=== PATIENT | male | born 1960 | race Caucasian/White ===

== ENCOUNTER 2018-08-13 12:53 | Outpatient (CLI) | payer BC, SELFPAY ==
[2018-08-13 13:22] LABS: Abs Immature Grans 0.01 k/cumm (0.0-0.09); Absolute Basophil Count 0.01 k/cumm (0.0-0.2); Absolute Eosinophil Count 0.09 k/cumm (0.0-0.7); Absolute Lymphocyte Count 1.78 k/cumm (1.2-3.4); Absolute Monocyte Count 0.68 k/cumm (0.11-0.7); Absolute Neutrophil Count 2.54 k/cumm (1.2-6.7); Basophils % 0.2; Eosinophils % 1.8; HCT 44.4 % (40.0-50.0); HGB 15.2 g/dL (13.5-17.5); Immature Grans % 0.2; Lymphocytes % 34.8; Mean Corp. HGB Concentration 34.2 g/dL (32.0-36.0); Mean Corpuscular Hemoglobin 31.6 pg (27.0-33.0); Mean Corpuscular Volume 92.3 fL (80-95); Mean Platelet Volume 9.1 fL (8.0-11.0); Monocytes % 13.3; Neutrophils % 49.7; Platelet Count 191 x1000/uL (130-400); RBC 4.81 m/cumm (4.50-6.00); RBC Distribution Width 12.7 % (11.8-14.1); White Blood Cell Count 5.11 k/cumm (4.4-10.8)
[2018-08-13 13:45] LABS: ALT 32 U/L (12-78); AST 15 U/L (15-37); Albumin 3.6 g/dL (3.4-5.0); Alkaline Phosphatase 60 U/L (46-116); Anion Gap 10.2 mmol/L (3-11); BUN 19 mg/dL (7-18); Bilirubin, Total 0.7 mg/dL (0.2-1.0); CO2 25.8 mmol/L (21.0-32.0); CREATININE 0.95 mg/dL (0.70-1.30); Calcium 9.1 mg/dL (8.5-10.1); Chloride 103 mmol/L (98-107); Glucose 103 mg/dL (70-100); Potassium 3.8 mmol/L (3.5-5.1); Sodium 139 mmol/L (136-145); Total Protein 7.2 g/dL (6.4-8.2)
[2018-08-16 09:22] LABS: CEA 0.7 ng/ml
== END 2018-08-13 13:13 ==
PROVIDERS: PCP Internal Medicine; Visit Provider Internal Medicine Hematology & Oncology
DX: C18.7 Malignant neoplasm of sigmoid colon (principal)
CPT/HCPCS: 36415; 80053; 82378; 85025

== ENCOUNTER 2018-12-03 00:38 | Outpatient (CLI) | payer BC, SELFPAY ==
[2018-12-03 09:10] LABS: Abs Immature Grans 0.01 k/cumm (0.0-0.09); Absolute Basophil Count 0.01 k/cumm (0.0-0.2); Absolute Eosinophil Count 0.13 k/cumm (0.0-0.7); Absolute Monocyte Count 0.56 k/cumm (0.11-0.7); Absolute Neutrophil Count 3.03 k/cumm (1.2-6.7); Basophils % 0.2; Eosinophils % 2.4; HCT 48.2 % (40.0-50.0); HGB 15.8 g/dL (13.5-17.5); Immature Grans % 0.2; Lymphocytes % 31.3; Mean Corp. HGB Concentration 32.8 g/dL (32.0-36.0); Mean Corpuscular Hemoglobin 30.8 pg (27.0-33.0); Mean Platelet Volume 9.5 fL (8.0-11.0); Monocytes % 10.3; Neutrophils % 55.6; Platelet Count 193 x1000/uL (130-400); RBC 5.13 m/cumm (4.50-6.00); RBC Distribution Width 12.2 % (11.8-14.1); White Blood Cell Count 5.44 k/cumm (4.4-10.8)
[2018-12-03 09:21] LABS: ALT 25 U/L (12-78); AST 14 U/L (15-37); Albumin 3.6 g/dL (3.4-5.0); Alkaline Phosphatase 47 U/L (46-116); BUN 19 mg/dL (7-18); Bilirubin, Total 0.4 mg/dL (0.2-1.0); CREATININE 1.09 mg/dL (0.70-1.30); Calcium 8.8 mg/dL (8.5-10.1); Chloride 104 mmol/L (98-107); Glucose 108 mg/dL (70-100); Potassium 5.2 mmol/L (3.5-5.1); Sodium 139 mmol/L (136-145); Total Protein 7.8 g/dL (6.4-8.2)
[2018-12-03] MEDS: Omnipaque 350 MG/ML 100 ML BTL IJ (10:09)
--- NOTE | 2018-12-03 10:15 | DI.CT_ITS ---
SYMPTOMS/DIAGNOSIS: H/O COLON CA, S/P RESECTION AND CHEMO, RESTAGING, Z85.038 CHEST, ABDOMEN AND PELVIS CT: CT examination of the chest, abdomen and pelvis was performed with intravenous infusion of 100 cc's of Omnipaque 350 and ingestion of dilute barium with biphasic hepatic imaging. No intrapulmonary nodule seen. No pleural effusion or pleural based mass. No mediastinal, hilar, axillary or supraclavicular adenopathy. No evidence of pulmonary embolic disease. No abnormality of the thoracic aorta. The tracheobronchial tree appears intact. There is hepatic steatosis. No focal hepatic or splenic lesion seen. The pancreas is normal. The gallbladder and bile ducts have normal CT appearance. The adrenals and kidneys are unremarkable. The abdominal aorta is of normal diameter and no major vascular abnormality is seen. No significant abdominal wall hernia is seen. No significant adenopathy identified in the abdomen or pelvis. Sigmoid anastomosis again noted, no change in appearance from 05/10/18 CT. No pelvic adenopathy. There are a couple of 5 mm in diameter lymph nodes seen adjacent to the rectosigmoid junction which are nonspecific. Mild thickening of the urinary bladder wall may represent post radiation findings, please correlate clinically. CONCLUSION: No evidence of metastatic disease in the chest, abdomen or pelvis in a patient who is status post resection of colon carcinoma.
[2018-12-06 11:15] LABS: CEA <0.5 ng/ml
== END 2018-12-03 00:58 ==
PROVIDERS: PCP Internal Medicine; Visit Provider Internal Medicine Hematology & Oncology
DX: Z85.038 Personal history of other malignant neoplasm of large intestine (principal); Z92.21 Personal history of antineoplastic chemotherapy; K76.0 Fatty (change of) liver, not elsewhere classified; Z12.89 Encounter for screening for malignant neoplasm of other sites; Z13.89 Encounter for screening for other disorder
CPT/HCPCS: 36415; 74177; 80053; 71260; 82378; 85025; J3490

== ENCOUNTER 2019-04-04 07:56 | Day surgery (SDC) | payer BC, SELFPAY ==
--- NOTE | 2019-04-04 06:53 | W.COLOREPORT ---
Date of service: 04/04/19 Time of Service: 08:55 Colonoscopy Report Date of procedure: 04/04/19 Pre-op diagnosis general: Hx of colon Cancer and Colon Polyps Post-op diagnosis procedure note: same Procedure: Colonoscopy with polypectomy with cold forceps Surgeon: Cris Montelongo Anesthesia proc note operative: other (General/ ASA 2/ Jace Allred CRNA) Estimated blood loss (mL): 5 Pathology: other (Rectal Polyp, Cecal Polyps, Transverse polyp x2, Descending colon polyp) Complications: None Disposition: same day Indications: Mr. Hamilton is a pleasant 58 year old male who is here today for a follow up colonoscopy. He has a history of colon cancer and has undergone a sigmoid coloectomy and chemotyherapy. He also had a tubular adenoma and hyperplastic polyps in the past. Risks, benefits and complications have been reviewed. Complications include but are not limited to bleeding, pain, perforation, missed small lesion/polyp, sore throat, aspiration and adverse reaction to the medications. Questions were entertained and answered to their satisfaction and they wished to proceed. No guarantees were given or implied. Prep: Miralax/Dulcolax Procedure Start Time: 08:55 Procedure End Time: 09:27 Retraction Time: 23 minutes Findings: Multiple polyps throughout the colon Procedure Description: After informed consent was obtained the patient was taken to the procedure room and placed in a left decubitous position. Monitors were applied and a time out was done. The patients name, date of , procedure, allergies to medications and metal in their body was reviewed. The patient was then sedated. Once sedated and comfortable a rectal exam was done. External exam was normal. Internal exam revealed a normal sphincter tone and no palpable masses. The prostate smooth. The scope was then introduced and retro-flexed. No internal hemorrhoids were identified and no masses. There was a small polyp which was removed with cold forceps. The scope was then advanced to the cecum without difficulty. The TI and appendiceal orifice were identified. The prep was adequate. The scope was then slowly retracted over 23 minutes back into the rectum. Polyps were removed with cold forceps in the Cecum x1, Transverse colon x2, and descending colon. The anastamosis was identified and was wide open. The scope was removed and the patient was woken up and taken back to Same day surgery in stable condition. The patient tolerated the procedure well and there were no immediate complications. Follow up: The patient should follow up in 1 year unless they develop changes in bowel habits or other new gastrointestinal complaints.
--- NOTE | 2019-04-04 06:55 | W.PM.DSUDISC ---
Discharge Plan Disposition Patient Disposition: HOME Condition: Good Discharge Details Reason For Visit: Colonoscopy Attending Provider: Cris Montelongo Primary Care Provider: Saira Jean Home Meds and New Rx's Prescriptions: Continued metoprolol succinate 50 MG tablet extended release 24 hr 100 mg PO HS RF: 0 aspirin [Aspirin Low-Strength] 81 MG tablet,chewable 81 mg PO DAILY RF: 0 Discontinued polyethylene glycol 3350 17 gram/dose powder 238 g PO ONCE Qty: 238 RF: 0 bisacodyl [Dulcolax (bisacodyl)] 5 mg tablet,delayed release (DR/EC) 5 mg PO ONCE Qty: 4 RF: 0 Discharge Instructions Instructions: Colonoscopy (DC), Colorectal Polyps (DC) Additional Instructions: Findings: 5 polyps Follow up: 1 year Please call if you develop: fevers >101.5 Nausea or Vomiting Abdominal pain that is not transient DAY SURGERY UNIT POST COLONOSCOPY INSTRUCTIONS 1. Because there will be medication in your system for the next 24 hours, you may feel a little sleepy. Your coordination will be affected. Therefore: a. Do not drive or operate dangerous equipment for 24 hours. b. Do not drink alcohol beverages for 24 hours (not even beer). c. Plan to go home and rest for the day. 2. Generally there are no restrictions on your activity after a day or so has gone by, but you may feel a bit fatigued for a few days. 3 After you arrive home you may have a light meal and return to a normal diet as you can tolerate it without feeling sick to your stomach. 4. After surgery, you may feel pain or discomfort. This should be only transient, but if it persists please contact your doctor. 5. If there are any questions regarding the findings of your procedure, please feel free to contact your doctor. 6. If you are unable to contact your doctor with a problem, contact the hospital at [phone]. 7. Continue all your regular medications unless directed otherwise. I understand the above instructions and have no questions. Signature of Patient or Responsible Adult Escort Date/Time Name of Responsible Adult Escort Signature of Nurse Date/Time Activity:: Activity as Tolerated Diet:: As Tolerated Discharge Orders Discharge Orders: Discharge Order (Routine); Ordered 04/04/19 Ordered By: Cris Montelongo DS: Diagnosis Discharge Diagnosis (1) S/P colonoscopy: Status: Acute (2) Colorectal polyps: Status: Acute
[2019-04-04] MEDS: Lactated Ringers 1,000 ML 80 ML IV (08:30)
--- NOTE | 2019-04-04 08:57 | BOWEL_PTH ---
PATIENT: Tony Hamilton V LOC: [facility] U#:[id number] AGE/SX: 58/M ROOM: RE04/04/[address]: Cris Montelongo MD : [id number] BED: DIS: 04/04/2019 SPEC #: [id number] RECD: 04/04/19 12:54 STATUS: BOUBACAR RE #: [id number] MAXIMUS: 04/04/19 08:[address]: Cris Montelongo DEPT: Surgical Specimen RECD BY: Yenny Wade ENTERED: 04/04/19 12:56 SP TYPE: Bowel OTHR DR: Saira Jean Tissues: 1 - BIOPSY BOWEL 2 - BIOPSY BOWEL 3 - BIOPSY BOWEL 4 - BIOPSY BOWEL Procedures: GROSS AND MICRO LEVEL 4 Comments: [id number]
[2019-04-04 09:55] VITALS: BP 138/80; PULSE 57; RESP 16; TEMP 36; O2SAT 95
== END 2019-04-04 10:15 | disposition home or self-care (01) ==
LOC: SUR 07:57
PROVIDERS: PCP Nurse Practitioner Family; Visit Provider Surgery
PROC: 0DJD8ZZ Inspection of Lower Intestinal Tract, Via Natural or Artificial Opening Endoscopic (ICD-10-PCS; CPT 45378; principal; 2019-04-04 09:30)
DX: Z12.11 Encounter for screening for malignant neoplasm of colon (principal); Z85.038 Personal history of other malignant neoplasm of large intestine; Z86.010 Personal history of colon polyps; K63.5 Polyp of colon; D12.0 Benign neoplasm of cecum; D12.3 Benign neoplasm of transverse colon; K51.40 Inflammatory polyps of colon without complications; Z90.49 Acquired absence of other specified parts of digestive tract; Z98.0 Intestinal bypass and anastomosis status; Z92.21 Personal history of antineoplastic chemotherapy
CPT/HCPCS: 45380; 88305

== ENCOUNTER 2019-08-08 00:40 | Outpatient (CLI) | payer BC, SELFPAY ==
[2019-08-08 08:44] LABS: Abs Immature Grans 0.01 k/cumm (0.0-0.09); Absolute Basophil Count 0.01 k/cumm (0.0-0.2); Absolute Eosinophil Count 0.11 k/cumm (0.0-0.7); Absolute Lymphocyte Count 1.44 k/cumm (1.2-3.4); Absolute Neutrophil Count 2.46 k/cumm (1.2-6.7); Basophils % 0.2; Eosinophils % 2.4; HCT 44.9 % (40.0-50.0); HGB 15.2 g/dL (13.5-17.5); Immature Grans % 0.2; Lymphocytes % 31.8; Mean Corp. HGB Concentration 33.9 g/dL (32.0-36.0); Mean Corpuscular Hemoglobin 31.8 pg (27.0-33.0); Mean Corpuscular Volume 93.9 fL (80-95); Mean Platelet Volume 9.1 fL (8.0-11.0); Neutrophils % 54.4; Platelet Count 223 x1000/uL (130-400); RBC 4.78 m/cumm (4.50-6.00); RBC Distribution Width 12.5 % (11.8-14.1); White Blood Cell Count 4.53 k/cumm (4.4-10.8)
[2019-08-08 08:58] LABS: ALT 29 U/L (16-63); AST 14 U/L (15-37); Albumin 3.6 g/dL (3.4-5.0); Alkaline Phosphatase 53 U/L (46-116); Anion Gap 9.1 mmol/L (3-11); BUN 15 mg/dL (7-18); Bilirubin, Total 0.6 mg/dL (0.2-1.0); CO2 28.9 mmol/L (21.0-32.0); CREATININE 0.99 mg/dL (0.70-1.30); Calcium 8.5 mg/dL (8.5-10.1); Chloride 105 mmol/L (98-107); Glucose 106 mg/dL (70-100); Potassium 4.2 mmol/L (3.5-5.1); Sodium 143 mmol/L (136-145); Total Protein 7.4 g/dL (6.4-8.2)
--- NOTE | 2019-08-08 09:42 | DI.CT_ITS ---
EXAM: CT CHEST/ABD/PEL W CLINICAL HISTORY: H/O COLON CA,C18.7,S/P RESECTION AND CHEMO,RESTAGING EXAM TECHNIQUE: CT examination of the chest, abdomen and pelvis was performed with bolus infusion of 100 cc Omnipaque 350 and ingestion of dilute barium. FINDINGS: The lungs are clear except for a stable 4 millimeter in diameter nodule associated with the major fis sure on the right, probably representing an intrapulmonary lymph node. No pleural effusion. No medi astinal or hilar adenopathy. Tracheobronchial tree appears intact. Note is made of hepatic steatosis. No focal hepatic lesion identified. Spleen is unremarkable. Gal lbladder and bile ducts are CT normal. Pancreas appears normal. Abdominal aorta is of normal diamet er and no major vascular abnormality is seen. Adrenals and kidneys appear normal. No retroperitonea l adenopathy in the upper abdomen. No significant abdominal wall hernia. No adenopathy in the pelvi s. No evidence of bowel obstruction. Normal appearance of the appendix. Adrenals and kidneys are unremarkable. No urinary tract calcification except for a tiny right upper pole nonobstructing calculus. Urinary bladder is unremarkable in appearance. Rectosigmoid anastomos is noted. There is slightly increased prominence of perirectal nodules, presumably representing smal l lymph nodes, the largest about 8 millimeters in diameter, these are a little more prominent than on previous examination of 12/03/2018. Findings are nonspecific and could represent inflammation versu s metastatic disease. An additional nodule is seen adjacent to the internal iliac vessels on the rig ht, unchanged from the prior examination. IMPRESSION: No evidence of metastatic disease of the chest. No evidence of metastatic disease of the abdomen or pelvis except for question slight interval increa se in prominence of perirectal lymph nodes, follow up CT suggested in 6 months.
[2019-08-08] MEDS: Breeza Beverage 473 ML BTL PO ×2 (09:43→09:44)
[2019-08-08] MEDS: Omnipaque 350 MG/ML 50 ML BTL PO (09:44)
[2019-08-08] MEDS: Omnipaque 350 MG/ML 100 ML BTL IV (09:44)
[2019-08-09 09:59] LABS: CEA 0.8 ng/ml
== END 2019-08-08 01:00 ==
PROVIDERS: PCP Nurse Practitioner Family; Visit Provider Internal Medicine Hematology & Oncology
DX: C18.7 Malignant neoplasm of sigmoid colon (principal); Z92.21 Personal history of antineoplastic chemotherapy; R59.0 Localized enlarged lymph nodes; R91.1 Solitary pulmonary nodule; K76.0 Fatty (change of) liver, not elsewhere classified; Z98.0 Intestinal bypass and anastomosis status
CPT/HCPCS: 74177; 80053; 71260; 82378; 85025; J3490; Q9967

== ENCOUNTER 2019-10-03 16:26 | Emergency (ER) | payer BC, SELFPAY ==
[2019-10-03 16:31] VITALS: BP 187/102; PULSE 72; RESP 16; TEMP 36.6; O2SAT 98
--- NOTE | 2019-10-03 16:48 | W.ED.GENAD ---
Discharge Plan Disposition Patient Disposition: HOME Condition: Good Discharge Details Chief Complaint: Orthopedic Clinical Impression: Plantar fasciitis Primary Care Provider: Saira Jean ED Provider: Shanique Wade Home Meds and New Rx's Prescriptions: Continued metoprolol succinate 50 MG tablet extended release 24 hr 100 mg PO HS RF: 0 aspirin [Aspirin Low-Strength] 81 MG tablet,chewable 81 mg PO DAILY RF: 0 Discharge Instructions Instructions: Plantar Fasciitis Exercises (GEN), Plantar Fasciitis (ED) Additional Instructions: X-rays are reassuring today. Please encourage rest, ice, elevation. Please begin using Aleve twice a day, once in the morning and once at night. Continue with this for the next 1 to 2 weeks. You may augment this with Tylenol to help with discomfort. Please continue with a supportive shoe as much as possible, and use postop shoe to help with pain when at home. Physical therapy referral is attached. Please also call podiatry, number listed below to schedule appointment. Attached is a list of exercises to begin. You may use tennis ball or golf ball, may find frozen water bottle helpful. If you develop fever/chills, increased pain or other new/worsening symptoms please seek care urgently once again. Stand Alone Forms: Physical Therapy Referral Referrals: Saira Jean NP [Primary Care Provider] - Mo Douglas DPM [[facility] STAFF PHYSICIAN] - Discharge Data Discharge Date/Time-TO BE ENTERED AT DEPARTURE: 10/03/19 18:00 Medical Decision Making Patient is a 59 year old male presenting today with c/c of right heel pain x 3 months. States that 3 months ago he was struck in the lateral aspect of the heel with steel at work. Reprots no pain initially. States the ecchymosis and discomfort began approximately 1 week after injury. However, this was short-lived discomfort associated with this injury on the last few weeks. After resolution of this however the patient then misstepped going down stairs. Believes that he may have struck his heel again at that time although he did not immediately note recurrence of his heel pain. He states that next month 1 week after this recurrent issue that he again noted discomfort. States that since that time, which is been present for weeks, that the pain has been steady and increasing. He now rates the pain at a 10 out of 10 and states that it can cause difficulty with ambulation. He finds that pain is improved when he is in his work boots which are fairly stiff and maximal when he is walking barefoot. Has not noted area of erythema, no break in skin, no warmth. States the pain is worse particularly with dorsiflexion and indicates the distal aspect of the calcaneus is area of maximal tenderness when ambulating. No pain with palpation over the Achilles tendon, normal Panda test. On exam, patient is resting comfortably. I did not note any antalgic gait. He has pain elicited with palpation over the distal calcaneus as well as with lateral squeeze testing. Plan for imaging although I find fracture to be less likely with the delayed pain after injury and mechanism of injury. FINDINGS: Bones/joints: Tiny superior calcaneal spur. Moderate sized plantar calcaneal spur. Normal bone density. No fracture or dislocation. Soft tissues: Normal. IMPRESSION: No acute bone or joint abnormality. Discussed these findings with the patient. The mechanism that causes the most increase in his discomfort is consistent with plantar fasciitis. He has not been taking anything for his discomfort. I did encourage the use of NSAIDs. As he is finding immobilization more comfortable on his head difficulty at home, offered a postoperative shoe to help with this. I encouraged stretching and rolling techniques. Will refer to physical therapy. I encouraged arch support. Given the length of time the patient's been having these continued symptoms, feel that referral to podiatry is appropriate. Patient will call tomorrow to schedule appointment. He was given return precautions. All of his questions and concerns were addressed and he is in agreement this plan. [facility] General Mode of arrival: ambulatory. Date/Time Provider Initiated Documentation: 10/03/19 16:48. Limitations to Documentation: no limitations. Information obtained by: patient and RN notes reviewed. History of Present Illness 59 year old M presents to the emergency department with the chief complaint of right heel pain, described as severe, with intensity rated at 10. Quality is described as sharp, and is localized to the right and lower extremity. Patient reports no radiation. Patient started experiencing this month(s) (3) and it has been intermittent. Immobilization improves symptom(s), Movement worsens symptoms . Patient notes no other symptoms.. Patient did receive the following treatments prior to arrival, none Related Data Home Medications Medication Instructions Recorded Confirmed metoprolol succinate 100 mg PO HS tab-cap 01/08/17 10/03/19 aspirin [Aspirin Low-Strength] 81 mg PO DAILY 02/05/17 10/03/19 Allergies Allergy/AdvReac Type Severity Reaction Status Date / Time No Known Allergies Allergy Verified 10/03/19 16:36 General Stated Complaint: Orthopedic PUMA: 4 Review of Systems Constitutional Constitutional: Reports as per HPI, Denies chills, Denies fever(s), Denies headache(s) and Denies weakness ENT Ears, Nose, Mouth, and Throat: Denies headache(s) Cardiovascular Cardiovascular: Reports as per HPI Respiratory Respiratory: Reports as per HPI and Denies cough Musculoskeletal Musculoskeletal: Reports as per HPI and Denies tingling Integumentary/Breasts Skin/Breast: Reports as per HPI, Denies rash and Denies wounds Neurologic Neurologic: Reports as per HPI, Denies headache(s), Denies tingling, Denies paresthesias and Denies weakness PFS Medical History Adenocarcinoma, colon 2017. partial colectomy ([place]) and chemotherapy x 6 mos. Colorectal polyps (Acute) Hypertension Melanocytic nevus of scalp Surgical History Colonoscopy - MAC (02/09/17) Colonoscopy - MAC (03/08/18) laryngoscopy with removal of FB on Tonsil Partial resection of colon (03/10/17) laparoscopic sigmoid colectomy with low anterior ansastamosis S/P colonoscopy (Acute ~04/04/19) 2018- Dx with Colon Cancer Social History Smoking/Tobacco Use Status: Current every day Tobacco Type: smokeless tobacco Smokeless tobacco user: chewing tobacco Quit status: considering quitting Alcohol Intake: former Year quit: 2019 Details: 2018 Drug use: Never Substance use type: does not use Details: last timed chewed was 04/02/19 Do you feel safe at home: Yes Do you feel safe in your relationship?: Yes Exam Const General: cooperative, healthy appearing, comfortable, no acute distress, well developed and well groomed Nutritional Appearance: average body habitus and well nourished Orientation: alert and awake Resp Effort & Inspection: normal respiratory effort, able to speak in complete sentences and no respiratory distress Cardio Rate: regular rate Rhythm: regular rhythm Skin General skin exam: no rashes or lesions noted Lesions: no lesions Rashes: no rashes Trauma: no lacerations or abrasions Neuro General: alert and awake Cognition: normal cognition Speech: speech normal Gait: normal gait Motor: muscle tone normal throughout Sensory Exam: no sensory deficits noted Extrem General: normal to inspection, full ROM, normal capillary refill, no joint enlargement, no clubbing, cyanosis or edema, no pedal edema, no calf tenderness and normal gait Left lower extremity: normal to inspection, full ROM, normal capillary refill, no joint enlargement, lower leg Details: normal to inspection and no edema; no tenderness, no localized swelling, no palpable cords, no ecchymosis, no crepitus and no deformity, ankle Details: normal to inspection, no edema and normal ROM; no tenderness, no swelling, no lacerations, no ecchymosis, no crepitus and achilles tendon exam normal and foot Details: normal capillary refill, normal to inspection, tenderness Location: of the calcaneus (pain with lateral squeeze and palpation over distal plantar surface, worse with dorsiflexion) Details: with squeeze; not of the mid foot and not of the base of the 5th metatarsal, no edema, vascular exam Details: dorsalis pedis pulse present, posterior tibial pulse present and normal capillary refill and motor-sensory exam Details: light-touch normal; no abrasions, no lacerations, no ecchymosis and no crepitus Psych Appearance: grossly normal and well kempt Mental Status: mental status grossly normal Speech and Movement: speech and movement normal Course Vital Signs Vital signs: Vital Signs Temperature 36.6 C 10/03/19 16:31 Pulse 72 10/03/19 16:31 Respiratory Rate 16 10/03/19 16:31 Blood Pressure 187/102 H 10/03/19 16:31 Pulse Oximetry 98 10/03/19 16:31 Temperature 36.6 C 10/03/19 16:31 Temperature Source Skin 10/03/19 16:31 Pulse 72 10/03/19 16:31 Respiratory Rate 16 10/03/19 16:31 Respiratory Effort Non-Labored 10/03/19 16:31 Blood Pressure 187/102 H 10/03/19 16:31 Blood Pressure Position Sitting 10/03/19 16:31 Pulse Oximetry 98 10/03/19 16:31 Oxygen Delivery Method Room Air 10/03/19 16:31 Oxygen Flow Rate 0 10/03/19 16:31 Pain Level 10 10/03/19 16:31
[2019-10-03] MEDS: Acetaminophen 500 MG TAB 1000 MG PO (17:27)
[2019-10-03] MEDS: Ibuprofen 600 MG TAB PO (17:27)
--- NOTE | 2019-10-03 17:27 | DI.RAD_ITS ---
EXAM: XR HEEL RT OS CALCIS INDICATION: severe pain, trauma 3 months ago. COMPARISON: No exams were available for comparison TECHNIQUE: 2D digital imaging was performed. FINDINGS: No fracture is identified. A heel spur is noted. No bony erosions are seen. IMPRESSION: Heel spur. No acute abnormality
--- NOTE | 2019-10-03 17:38 | DI.VRAD_ITS ---
PROCEDURE INFORMATION: Exam: XR Right Calcaneus Exam date and time: 10/03/2019 5:30 PM Age: 59 years old Clinical history: Heel; Right; Patient HX: Severe pain, trauma 3 months ago TECHNIQUE: Imaging protocol: XR of the Right calcaneus. Views: 2 or more views. COMPARISON: No relevant prior studies available. FINDINGS: Bones/joints: Tiny superior calcaneal spur. Moderate sized plantar calcaneal spur. Normal bone density. No fracture or dislocation. Soft tissues: Normal. IMPRESSION: No acute bone or joint abnormality. Dictated and Authenticated by: Armando Stapleton MD. Ordering:STEFANIE Bay MD
[2019-10-03 17:46] VITALS: BP 166/96; PULSE 96; RESP 16; TEMP 36.6; O2SAT 100
== END 2019-10-03 18:00 | disposition home or self-care (01) ==
PROVIDERS: Emergency Provider Physician Assistant; PCP Nurse Practitioner Family
DX: M72.2 Plantar fascial fibromatosis (principal); I10 Essential (primary) hypertension
CPT/HCPCS: 99283; 73650

== ENCOUNTER 2019-11-18 11:31 | Outpatient (CLI) | payer OTHER, SELFPAY ==
[2019-11-18 12:35] LABS: Absolute Basophil Count 0.02 k/cumm (0.0-0.2); Absolute Eosinophil Count 0.08 k/cumm (0.0-0.7); Absolute Lymphocyte Count 1.39 k/cumm (1.2-3.4); Absolute Monocyte Count 0.55 k/cumm (0.11-0.7); Absolute Neutrophil Count 2.46 k/cumm (1.2-6.7); Basophils % 0.4; Eosinophils % 1.8; Lymphocytes % 30.9; Mean Corp. HGB Concentration 33.3 g/dL (32.0-36.0); Mean Corpuscular Hemoglobin 31.1 pg (27.0-33.0); Mean Corpuscular Volume 93.2 fL (80-95); Mean Platelet Volume 9.2 fL (8.0-11.0); Monocytes % 12.2; Neutrophils % 54.7; Platelet Count 204 x1000/uL (130-400); RBC 5.15 m/cumm (4.50-6.00); RBC Distribution Width 12.7 % (11.8-14.1)
[2019-11-18 12:42] LABS: ALT 31 U/L (16-63); AST 17 U/L (15-37); Albumin 3.7 g/dL (3.4-5.0); Alkaline Phosphatase 47 U/L (46-116); BUN 14 mg/dL (7-18); Bilirubin, Total 0.9 mg/dL (0.2-1.0); CREATININE 0.87 mg/dL (0.70-1.30); Calcium 8.8 mg/dL (8.5-10.1); Chloride 104 mmol/L (98-107); Glucose 103 mg/dL (74-106); Potassium 4.9 mmol/L (3.5-5.1); Sodium 141 mmol/L (136-145); Total Protein 7.2 g/dL (6.4-8.2)
== END 2019-11-18 11:51 ==
PROVIDERS: PCP Nurse Practitioner Family; Visit Provider Internal Medicine Hematology & Oncology
DX: C18.7 Malignant neoplasm of sigmoid colon (principal)
CPT/HCPCS: 36415; 80053; 82378; 85025

== ENCOUNTER 2020-02-08 01:08 | Outpatient (CLI) | payer OTHER, SELFPAY ==
--- NOTE | 2020-02-08 | DI.CT_ITS ---
EXAM: CT ABDOMEN AND PELVIS W CLINICAL HISTORY: SIGMOID COLON CA, C18.7, S/P RESECTION AND CHEMO, RESTAGING EXAM TECHNIQUE: Imaging Protocol: Axial computed tomography images with coronal and sagittal reformatted images were created and reviewed CONTRAST MATERIAL: Intravenous: Omnipaque 350 Contrast volume:100 mL Oral: Yes COMPARISON: CT CHEST/ABD/PEL W from 08/08/2019 FINDINGS: ABDOMEN: Lung Bases: Normal where visualized. Liver: There is diffuse decreased attenuation of the liver consistent with fatty infiltration. No me asurable mass. Portal, Superior Mesenteric, and Splenic Veins: Unremarkable. Gallbladder and Biliary Tract: No radiodense calculus or dilation. Pancreas: Normal density, no abnormal calcifications or inflammatory process. Spleen: Normal. Adrenals: No masses seen. Kidneys: Normal size, contour and axis. There is right nephrolithiasis but no evidence of obstructive uropathy. No masses seen. Abdominal Aorta: Abdominal portion non-dilated. Atherosclerosis. Bowel: No obstruction or bowel wall thickening. Appendix is unremarkable. There is a rectosigmoid zoila stomosis, which appears unchanged. Peritoneal Cavity: No ascites, collection or mesenteric inflammatory response. Lymph Nodes: Within normal limits. Bones: There are degenerative changes in the spine. No aggressive osseous lesions are identified. Soft Tissues: Unremarkable. PELVIS: Bladder: Symmetric distention, no gross wall thickening. Reproductive Organs: Unremarkable as visualized. Lymph Nodes: Within normal limits. Bones: There are degenerative changes in the spine. No aggressive osseous lesions are identified. IMPRESSION: No evidence of abdominal or pelvic metastatic disease. RADIATION DOSE DELIVERED: DATA REPOSITORY: All CT scans at this facility are submitted to the National Radiology Data Registry (NRDR) Dose Index Registry (DIR) with the [employer] (ACR). RADIATION OPTIMIZATION: All CT scans at this facility use at least one of these dose optimization te chniques: automated exposure control; mA and/or kV adjustment per patient size (includes targeted exa ms where dose is matched to clinical indication); or iterative reconstruction.
[2020-02-08 09:45] LABS: Abs Immature Grans 0.01 k/cumm (0.0-0.09); Absolute Basophil Count 0.02 k/cumm (0.0-0.2); Absolute Eosinophil Count 0.09 k/cumm (0.0-0.7); Absolute Lymphocyte Count 1.33 k/cumm (1.2-3.4); Absolute Monocyte Count 0.51 k/cumm (0.11-0.7); Basophils % 0.4; Eosinophils % 1.9; HCT 46.1 % (40.0-50.0); HGB 15.2 g/dL (13.5-17.5); Immature Grans % 0.2 %; Lymphocytes % 28.5; Mean Corpuscular Hemoglobin 30.8 pg (27.0-33.0); Mean Corpuscular Volume 93.5 fL (80-95); Mean Platelet Volume 9.1 fL (8.0-11.0); Monocytes % 10.9; Neutrophils % 58.1; Platelet Count 199 x1000/uL (130-400); RBC 4.93 m/cumm (4.50-6.00); RBC Distribution Width 12.5 % (11.8-14.1); White Blood Cell Count 4.66 k/cumm (4.4-10.8)
[2020-02-08 10:00] LABS: ALT 30 U/L (16-63); AST 17 U/L (15-37); Albumin 3.6 g/dL (3.4-5.0); Alkaline Phosphatase 46 U/L (46-116); Anion Gap 6.2 mmol/L (3-11); BUN 17 mg/dL (7-18); Bilirubin, Total 0.8 mg/dL (0.2-1.0); CO2 31.8 mmol/L (21.0-32.0); CREATININE 1.03 mg/dL (0.70-1.30); Calcium 8.4 mg/dL (8.5-10.1); Chloride 104 mmol/L (98-107); Glucose 96 mg/dL (74-106); Potassium 3.8 mmol/L (3.5-5.1); Sodium 142 mmol/L (136-145); Total Protein 7.1 g/dL (6.4-8.2)
[2020-02-08] MEDS: Omnipaque 350 MG/ML 100 ML BTL IJ (12:57)
[2020-02-09 18:57] LABS: CEA 0.8 ng/mL (See Note)
== END 2020-02-08 01:28 ==
PROVIDERS: Internal Medicine Hematology & Oncology; PCP Nurse Practitioner Family; Visit Provider Nurse Practitioner Adult Health
DX: C18.7 Malignant neoplasm of sigmoid colon (principal); Z92.21 Personal history of antineoplastic chemotherapy; Z12.89 Encounter for screening for malignant neoplasm of other sites; N20.0 Calculus of kidney; K76.89 Other specified diseases of liver; Z98.0 Intestinal bypass and anastomosis status
CPT/HCPCS: 80053; 74177; 82378; 85025; J3490

== ENCOUNTER 2020-02-09 10:55 | Outpatient (CLI) | payer OTHER, SELFPAY ==
--- NOTE | 2020-02-09 | DI.CT_ITS ---
EXAM: CT CHEST W CLINICAL HISTORY: SIGMOID COLON CA,C18.7, RESTAGING EXAM TECHNIQUE: Imaging Protocol: Axial computed tomography images with coronal and sagittal reformatted images were created and reviewed CONTRAST MATERIAL: Intravenous: Omnipaque 350 Contrast volume:structured data in ml. COMPARISON: CT CHEST/ABD/PEL W from 08/08/2019 CT CHEST/ABD/PEL W from 08/08/2019 CT ABDOMEN PELVIS W from 02/08/2020 FINDINGS: Tracheobronchial tree: Patent where visualized. Mediastinum and Karoline: No dominant adenopathy or fluid collection. Pulmonary parenchyma: No consolidation or dominant measurable mass. There are mild underlying emphyse matous changes. There is a small pulmonary nodule near the minor fissure, un changed.. Pleura: No effusion or pneumothorax. Heart: The heart is not dilated. No coronary artery calcifications are seen. Aorta: Thoracic aorta non-dilated. Mild calcification. Upper abdomen: Severe fatty infiltration of the liver. Lymph nodes: Within normal limits. Bones: Degenerative changes are seen in the spine.. IMPRESSION: No evidence of metastatic disease in the chest or other acute abnormality. DATA REPOSITORY: All CT scans at this facility are submitted to the National Radiology Data Registry (NRDR) Dose Index Registry (DIR) with the [employer] (ACR). RADIATION OPTIMIZATION: All CT scans at this facility use at least one of these dose optimization te chniques: automated exposure control; mA and/or kV adjustment per patient size (includes targeted exa ms where dose is matched to clinical indication); or iterative reconstruction.
[2020-02-09] MEDS: Normal Saline - Diluent 50 ML VIAL IV (08:03)
[2020-02-09] MEDS: Omnipaque 350 MG/ML 100 ML BTL 70 ML IJ (08:04)
== END 2020-02-09 11:15 ==
PROVIDERS: PCP Nurse Practitioner Family; Visit Provider Nurse Practitioner Adult Health
DX: C18.7 Malignant neoplasm of sigmoid colon (principal); K76.0 Fatty (change of) liver, not elsewhere classified; R91.1 Solitary pulmonary nodule; Z12.89 Encounter for screening for malignant neoplasm of other sites
CPT/HCPCS: 71260; J3490

== ENCOUNTER 2020-04-02 06:08 | Day surgery (SDC) | payer OTHER, SELFPAY ==
[2020-04-02 06:15] VITALS: BP 140/92; PULSE 63; RESP 18; TEMP 36.5; O2SAT 96
[2020-04-02] MEDS: Lactated Ringers 1,000 ML 80 ML IV (06:35)
--- NOTE | 2020-04-02 06:48 | COLE_ITS ---
Date of service: 04/02/20 Time of Service: 07:25 Colonoscopy Report Date of procedure: 04/02/20 Pre-op diagnosis general: Hx of polyps, colon cancer and intermittent rectal bleeding Post-op diagnosis procedure note: same (polyps and inflammation at anastamosis) Procedure: Colonoscopy with polypectomy and bx Surgeon: Cris Montelongo Anesthesia proc note operative: other (General/ ASA 2/Mirta Guillen, JAZMINE) Estimated blood loss (mL): 5 Pathology: other (Appendiciel orifice bx, Transverse polyp, rectal polyp x2, bx at 20 cm, anastamosis bx at 10 cm) Complications: None Disposition: same day Indications: Tony is here today for a repeat screening colonoscopy. He was diagnosed with colon cancer in 2017 and underwent resection. His last colonoscopy was March of 2019 and he was noted to have pre-cancerous polyps. He now has developed intermittent rectal bleeding for the last 3 weeks and has had more constipation Plan for Colonoscopy Risks, benefits and complications have been reviewed. Complications include but are not limited to bleeding, pain, perforation, missed small lesion/polyp, sore throat, aspiration and adverse reaction to the medications. Questions were entertained and answered to their satisfaction and they wished to proceed. No guarantees were given or implied. Prep: Miralax/Dulcolax Procedure Start Time: 07:25 Procedure End Time: 08:25 Retraction Time: 35 minutes Findings: Severe infflammation and friable tissue at the anastamosis, inflammation at 20 cm, inflammed appendiceal orifice, Transverse polyp and rectal polyps x2 Procedure Description: After informed consent was obtained the patient was taken to the procedure room and placed in a left decubitous position. Monitors were applied and a time out was done. The patients name, date of , procedure, allergies to medications and metal in their body was reviewed. The patient was then sedated. Once sedated and comfortable a rectal exam was done. External exam was normal. Internal exam revealed bright red blood, a normal sphincter tone and no palpable masses. The prostate not felt. The scope was then introduced and retro-flexed. No internal hemorrhoids were identified. There was severe friability and bleeding noted at 10 cm, the site of the anastamosis. The scope was then advanced to the cecum with some difficulty due to a large amount of liquid stool, seeds and large pieces of fiber. The TI and appendiceal orifice were identified. The prep was marginal. 1 L of fluid was used to clear ourt the liquid stool. Small polyps could have been missed. There was inflammation around the appendiceal orifice and biopsies were done. The scope was then slowly retracted over 35 minutes back into the rectum. Polyps were removed with cold forceps in the transverse colon and 2 in the rectum. There was an area of inflammation noted at 20 cm and this was biopsied. The scope was retracted to 10 cm. The anastamosis was very friable and there was bleeding. No mass was identified. Biopsies were done circumferentialy. The s cope was removed and the patient was woken up and taken back to Same day surgery in stable condition. The patient tolerated the procedure well and there were no immediate complications. Follow up: Follow up will depend on biopsy results. LAst CEA done in January was normal.
--- NOTE | 2020-04-02 06:51 | W.PM.DSUDISC ---
Discharge Plan Disposition Patient Disposition: HOME Condition: Good Discharge Details Reason For Visit: Hx of colon CA, Hx of polyps, rectal bleeding Attending Provider: Cris Montelongo Primary Care Provider: Saira Jean Home Meds and New Rx's Prescriptions: Continued metoprolol succinate 50 MG tablet extended release 24 hr 100 mg PO DAILY RF: 0 Metamucil 3.4 gram/5.4 gram Powder 5.4 g PO DAILY RF: 0 Discharge Instructions Additional Instructions: Findings: 3 polyps inflammation of the anastamosis with bleeding Follow up: depends on pathology results. I will call you with results Please call if you develop: fevers >101.5 Nausea or Vomiting Abdominal pain that is not transient DAY SURGERY UNIT POST ENDOSCOPY INSTRUCTIONS 1. Because there will be medication in your system for the next 24 hours, you may feel a little sleepy. Your coordination will be affected. Therefore: a. Do not drive or operate dangerous equipment for 24 hours. b. Do not drink alcohol beverages for 24 hours (not even beer). c. Plan to go home and rest for the day. 2. Generally there are no restrictions on your activity after a day or so has gone by, but you may feel a bit fatigued for a few days. 3 After you arrive home you may have a light meal and return to a normal diet as you can tolerate it without feeling sick to your stomach. 4. After surgery, you may feel pain or discomfort. This should be only transient, but if it persists please contact your doctor. 5. If there are any questions regarding the findings of your procedure, please feel free to contact your doctor. 6. If you are unable to contact your doctor with a problem, contact the hospital at [phone]. 7. Continue all your regular medications unless directed otherwise. I understand the above instructions and have no questions. Signature of Patient or Responsible Adult Escort Date/Time Name of Responsible Adult Escort Signature of Nurse Date/Time Activity:: Activity as Tolerated Diet:: As Tolerated Discharge Orders Discharge Orders: Discharge Order (Routine); Ordered 04/02/20 Ordered By: Cris Montelongo DS: Diagnosis Discharge Diagnosis (1) Colorectal polyps: Status: Acute (2) History of colon cancer: Status: Chronic
--- NOTE | 2020-04-02 07:50 | BOWEL_PTH ---
PATIENT: Tony Hamilton V LOC: [facility] U#:[id number] AGE/SX: 59/M ROOM: RE04/02/[address]: Cris Montelongo MD : 1960 BED: DIS: 04/02/2020 SPEC #: [id number] RECD: 04/02/20 12:20 STATUS: BOUBACAR REJalyn #: [id number] MAXIMUS: 04/02/20 07:[address]: Cris Montelongo DEPT: Surgical Specimen RECD BY: Yenny Wade ENTERED: 04/02/20 12:23 SP TYPE: Bowel OTHR DR: Saira Jean Tissues: 1 - BIOPSY BOWEL 2 - BIOPSY BOWEL 3 - BIOPSY BOWEL 4 - BIOPSY BOWEL 5 - BIOPSY BOWEL Procedures: GROSS AND MICRO LEVEL 4 IMMUNOPEROXIDASE STAIN Comments: [id number]
[2020-04-02 08:58] VITALS: BP 144/87; PULSE 68; RESP 18; TEMP 36.3; O2SAT 97
== END 2020-04-02 09:14 | disposition home or self-care (01) ==
PROVIDERS: PCP Nurse Practitioner Family; Visit Provider Surgery
PROC: 0DJD8ZZ Inspection of Lower Intestinal Tract, Via Natural or Artificial Opening Endoscopic (ICD-10-PCS; CPT 45378; principal; 2020-04-02 07:30)
DX: Z12.11 Encounter for screening for malignant neoplasm of colon (principal); Z85.038 Personal history of other malignant neoplasm of large intestine; Z86.011 Personal history of benign neoplasm of the brain; K62.5 Hemorrhage of anus and rectum; K52.89 Other specified noninfective gastroenteritis and colitis; D12.3 Benign neoplasm of transverse colon; Z90.49 Acquired absence of other specified parts of digestive tract; Z98.0 Intestinal bypass and anastomosis status; K51.90 Ulcerative colitis, unspecified, without complications; K62.1 Rectal polyp
CPT/HCPCS: 45380; 88305; 88361; J2001; J2704

== ENCOUNTER 2020-05-29 01:42 | Outpatient (CLI) | payer OTHER, SELFPAY ==
[2020-05-29 17:20] LABS: Abs Immature Grans 0.01 10^3/uL (0.0-0.06); Absolute Basophil Count 0.02 10^3/uL (0.0-0.2); Absolute Eosinophil Count 0.22 10^3/uL (0.0-0.7); Absolute Lymphocyte Count 1.28 10^3/uL (1.2-3.4); Absolute Monocyte Count 0.71 10^3/uL (0.1-0.8); Absolute Neutrophil Count 2.77 10^3/uL (1.2-6.7); Basophils % 0.4; Eosinophils % 4.4; HCT 41.7 % (40.0-50.0); HGB 13.6 g/dL (13.5-17.5); Immature Grans % 0.2; Lymphocytes % 25.5; MCHC 32.6 % (32.0-36.0); MPV 9.1 fL (8.0-11.0); Monocytes % 14.2; Neutrophils % 55.3; Nucleated RBC 0 %; Platelet Count 278 10^3/uL (130-400); RBC 4.39 10^6/uL (4.36-5.78); RDW 12.8 % (11.8-14.1); WBC 5.01 10^3/uL (4.4-10.8)
[2020-05-29 17:56] LABS: ALT 62 U/L (16-63); AST 24 U/L (15-37); Albumin 2.9 g/dL (3.4-5.0); Alkaline Phosphatase 63 U/L (46-116); Anion Gap 9.1 mmol/L (3-11); BUN 18 mg/dL (7-18); Bilirubin, Total 0.3 mg/dL (0.2-1.0); C-Reactive Protein 3.41 mg/dL (0.0-0.3); CO2 27.9 mmol/L (21.0-32.0); CREATININE 0.87 mg/dL (0.70-1.30); Calcium 8.7 mg/dL (8.5-10.1); Chloride 106 mmol/L (98-107); Glucose 112 mg/dL (74-106); Potassium 3.8 mmol/L (3.5-5.1); Sodium 143 mmol/L (136-145); Total Protein 6.3 g/dL (6.4-8.2)
[2020-05-29 19:27] LABS: ESR 37 mm/hr (1-20)
== END 2020-05-29 02:02 ==
PROVIDERS: Internal Medicine Gastroenterology; PCP Nurse Practitioner Family; Visit Provider Internal Medicine Hematology & Oncology
DX: K51.20 Ulcerative (chronic) proctitis without complications (principal); C18.7 Malignant neoplasm of sigmoid colon
CPT/HCPCS: 36415; 80053; 80076; 85652; 82378; 85025; 86140

== ENCOUNTER 2021-02-04 04:14 | Outpatient (CLI) | payer OTHER, SELFPAY ==
[2021-02-04 15:55] LABS: Abs Immature Grans 0.01 10^3/uL (0.0-0.06); Absolute Basophil Count 0.02 10^3/uL (0.0-0.2); Absolute Eosinophil Count 0.06 10^3/uL (0.0-0.7); Absolute Lymphocyte Count 1.58 10^3/uL (1.2-3.4); Absolute Monocyte Count 0.57 10^3/uL (0.1-0.8); Absolute Neutrophil Count 3.06 10^3/uL (1.2-6.7); Basophils % 0.4; Eosinophils % 1.1; HCT 44.9 % (40.0-50.0); HGB 14.7 g/dL (13.5-17.5); Immature Grans % 0.2; Lymphocytes % 29.8; MCHC 32.7 % (32.0-36.0); MCV 94.7 fL (80-95); MPV 9.3 fL (8.0-11.0); Monocytes % 10.8; Neutrophils % 57.7; Nucleated RBC 0 %; Platelet Count 184 10^3/uL (130-400); RBC 4.74 10^6/uL (4.36-5.78); RDW 12.1 % (11.8-14.1); RDW-SD 42.3 fL
[2021-02-04 16:25] LABS: ESR 2 mm//hr (0-20)
[2021-02-04 17:03] LABS: ALT 36 U/L (16-63); AST 20 U/L (15-37); Albumin 3.6 g/dL (3.4-5.0); Alkaline Phosphatase 50 U/L (46-116); Anion Gap 6.2 mmol/L (3-11); BUN 19 mg/dL (7-18); Bilirubin, Direct 0.1 mg/dL (0.0-0.2); Bilirubin, Total 0.6 mg/dL (0.2-1.0); C-Reactive Protein 0.17 mg/dL (0.0-0.3); CO2 31.8 mmol/L (21.0-32.0); CREATININE 1.1 mg/dL (0.70-1.30); Calcium 8.9 mg/dL (8.5-10.1); Chloride 104 mmol/L (98-107); Glucose 87 mg/dL (74-106); Potassium 3.5 mmol/L (3.5-5.1); Sodium 142 mmol/L (136-145); Total Protein 6.9 g/dL (6.4-8.2)
== END 2021-02-04 04:15 | disposition home or self-care (01) ==
LOC: LBO 04:14
PROVIDERS: PCP Nurse Practitioner Family; Visit Provider Internal Medicine Gastroenterology
DX: K51.50 Left sided colitis without complications (principal)
CPT/HCPCS: 36415; 80048; 80076; 85652; 85025; 86140

== ENCOUNTER 2021-02-09 09:59 | Outpatient (REF) | payer OTHER, SELFPAY ==
[2021-02-12 15:21] LABS: Calprotectin 29.2 mcg/g
== END 2021-02-09 10:00 | disposition home or self-care (01) ==
LOC: NCHCN 09:59
PROVIDERS: PCP Nurse Practitioner Family; Visit Provider Internal Medicine Gastroenterology
DX: K51.50 Left sided colitis without complications (principal)
CPT/HCPCS: 83993

== ENCOUNTER 2021-06-13 10:34 | Outpatient (REF) | payer OTHER, SELFPAY ==
[2021-06-13 18:55] LABS: Calculated LDL 143 mg/dL (<100); Cholesterol 211 mg/dL (<200); HDL Cholesterol 42 mg/dL (40-60); Triglyceride 134 mg/dL (<150)
== END 2021-06-13 10:35 | disposition home or self-care (01) ==
LOC: NCHCN 10:34
PROVIDERS: PCP Nurse Practitioner Family; Visit Provider Nurse Practitioner Family
DX: E78.5 Hyperlipidemia, unspecified (principal)
CPT/HCPCS: 80061

== ENCOUNTER 2021-11-11 01:09 | Outpatient (CLI) | payer OTHER, SELFPAY ==
[2021-11-11 10:57] LABS: Source Nasal/Nares
[2021-11-11 14:39] LABS: COVID-19 PCR Negative (Negative)
== END 2021-11-11 01:10 | disposition home or self-care (01) ==
LOC: LBO 01:10
PROVIDERS: PCP Nurse Practitioner Family; Visit Provider Surgery
DX: Z20.822 Contact with and (suspected) exposure to COVID-19 (principal)
CPT/HCPCS: 87635

== ENCOUNTER 2021-11-13 10:19 | Day surgery (SDC) | payer OTHER, SELFPAY ==
--- NOTE | 2021-11-12 09:29 | NUR.NOTE ---
Addendum entered by Austyn Hauser 11/12/21 11:16: Arrival time changed, from 1115 to 1030...left NEW message on patients voicemail, informed office. Original Note: Pt. left x2 messages with NPO instructions and arrival time for 1115. Office aware of inability to contact patient.Nursing Note:
--- NOTE | 2021-11-13 06:44 | W.COLOREPORT ---
Colonoscopy Report Date of procedure: 11/13/21 Pre-op diagnosis general: Hx of colon cancer, colon cancer screening Post-op diagnosis procedure note: same (2 small polyps, ? cecal mass and radiation proctitis) Procedure: Colonoscopy with polypectomy and biopsy Surgeon: Cris Montelongo Anesthesia Type: General:No Airway (Diana Guillen CRNA) Estimated blood loss (mL): 5 Pathology: other (ascending polyp, transverse polyp, ? cecal mass biopsies) Complications: None Disposition: same day Indications: Tony is back to see me today to discuss another colonoscopy. He was noted to have a tubular adenoma and 2 hyperplastic polyps in 2019. He has constipation about once a month at which point he also has some rectal bleeding. Both the constipation and the bleeding usually resolve within 24 hours. He does not have any history of melena, abdominal pain or unintentional weight loss. His CEA was 1 the last time it was checked. He is otherwise doing well and has not had any other new health issues. The colonoscopy and prep were again reviewed. Risks, benefits and complications have been reviewed. Complications include but are not limited to bleeding, pain, perforation, missed small lesion/polyp, sore throat, aspiration and adverse reaction to the medications. Questions were entertained and answered to their satisfaction and they wished to proceed. No guarantees were given or implied. Proceed with colonoscopy under sedation with possible hemorrhoid banding. Prep: Miralax/Dulcolax Procedure Start Time: 11:03 Procedure End Time: 11:29 Retraction Time: 11 minutes Findings: 2 small polyps ? mass around the appendiceal orifice Procedure Description: After informed consent was obtained the patient was taken to the procedure room and placed in a left decubitous position. Monitors were applied and a time out was done. The patients name, date of , procedure, allergies to medications and metal in their body was reviewed. The patient was then sedated. Once sedated and comfortable a rectal exam was done. External exam was normal. Internal exam revealed a normal sphincter tone and no palpable masses. The prostate felt smooth. The scope was then introduced and retro-flexed. NO internal hemorrhoids, polyps or masses were identified on retro-flexion. There was radiation proctitis noted. The scope was then advanced to the cecum without difficulty. The ileocecal vlave and appendiceal orifice were identified. The prep was good. The scope was then slowly retracted over 11 minutes back into the rectum. There was a ? mass vs inflammation around the appendiceal orifice which was biopsied. Polyps were removed with cold forceps in the ascending colon and transverse colon. There was no diverticulosis noted. The anastamosis site was identified. There was no stricture or recurrence identified. The scope was removed and the patient was woken up and taken back to Same day surgery in stable condition. The patient tolerated the procedure well and there were no immediate complications. Follow up: Follow up will depend on pathology results. CEA was ordered in SDS.
--- NOTE | 2021-11-13 06:45 | HPE_ITS ---
Assessment and Plan Assessment and plan (1) Encounter for colonoscopy due to history of adenomatous colonic polyps: Status: Acute Assessment and plan: Tony is back to see me today to discuss another colonoscopy. He was noted to have a tubular adenoma and 2 hyperplastic polyps in 2019. He has constipation about once a month at which point he also has some rectal bleeding. Both the constipation and the bleeding usually resolve within 24 hours. He does not have any history of melena, abdominal pain or unintentional weight loss. His CEA was 1 the last time it was checked. He is otherwise doing well and has not had any other new health issues. The colonoscopy and prep were again reviewed. Risks, benefits and complications have been reviewed. Complications include but are not limited to bleeding, pain, perforation, missed small lesion/polyp, sore throat, aspiration and adverse reaction to the medications. Questions were entertained and answered to their satisfaction and they wished to proceed. No guarantees were given or implied. Proceed with colonoscopy under sedation with possible hemorrhoid banding. (2) History of colon cancer: Status: Chronic History of Present Illness Narrative: Tony see me today to discuss another colonoscopy. He was diagnosed with colon cancer in the sigmoid colon in 2016. He underwent a sigmoid colectomy with low anterior resection. I did a colonoscopy on him in 2018 and he was noted to have 2 sessile serrated adenomas and a tubulovillous adenoma. I had him come back in September 2020 at which time he had 2 hyperplastic polyps and 1 tubular adenoma. In February 2020 he was also seen at [facility] for rectal bleeding. 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 He was placed on mesalamine which helped. He took the mesalamine for about 2 months and then stopped it as it was too expensive. He was having some constipation issues back when I saw him in 2019. He is on Metamucil now. He does tell me that about once a month he does still get constipated and then he will have some blood which he believes are hemorrhoids. The constipation usually resolves within 24 hours as does the bleeding. He has not had any melena or unintentional weight loss. He has no abdominal pain. Review of Systems Constitutional Constitutional: Denies fever(s), Denies headache(s) and Denies weight loss Eyes Eyes: Denies change in vision ENT Ears, Nose, Mouth, and Throat: Denies dysphagia and Denies headache(s) Cardiovascular Cardiovascular: Denies chest pain, Denies chest pain at rest, Denies irregular heart rhythm, Denies dyspnea and Denies dyspnea on exertion Respiratory Respiratory: Denies cough, Denies dyspnea and Denies dyspnea on exertion Gastrointestinal Gastrointestinal: Reports as per HPI and Denies dysphagia Genitourinary Genitourinary: Denies dysuria, Denies urinary incontinence and Denies urinary urgency Neurologic Neurologic: Denies headache(s) Endocrine Endocrine: Reports system reviewed and no additional complaints, except as documented Hematologic/Lymphatic Hematologic/Lymphatic: Denies easy bruising and Denies lymphadenopathy PFSH All Active Problems Encounter for colonoscopy due to history of adenomatous colonic polyps (Acute) Tubular adenoma (Acute) 04/02/20 Dr. Ray Montelongo Constipation (Acute) Rectal bleeding (Acute) Colorectal polyps (Acute) History of colon cancer (Chronic) Medical History Adenocarcinoma, colon 2017. partial colectomy ([place]) and chemotherapy x 6 mos. Colon polyp, hyperplastic 04/02/20 Dr. Ray Montelongo, hyperplastic x2 Hypertension Melanocytic nevus of scalp Surgical History Colonoscopy - MAC (02/09/17) Colonoscopy - MAC (03/08/18) laryngoscopy with removal of FB on Tonsil Partial resection of colon (03/10/17) laparoscopic sigmoid colectomy with low anterior ansastamosis S/P colonoscopy (~04/04/19) 2018- Dx with Colon Cancer Family History Other Essential hypertension Heart disease Lung cancer Social History Smoking/Tobacco Use Status: Former Tobacco Use Quit Date: 10/26/77 Smokeless tobacco user: chewing tobacco Quit status: considering quitting Smoking risk assessment performed?: Yes Alcohol Intake: former Year quit: 2019 Details: 2018 Drug use: Never Substance use type: does not use Current gender identity: male Do you feel safe at home: Yes Do you feel safe in your relationship?: Yes Meds Allergies and Home Medications Allergies Allergy/AdvReac Type Severity Reaction Status Date / Time No Known Allergies Allergy Verified 11/13/21 10:29 Home Medications Medication Instructions Recorded Confirmed Type metoprolol succinate 100 mg PO DAILY tab-cap 01/08/17 11/13/21 History Metamucil 5.4 g PO DAILY 03/29/20 11/13/21 History bisacodyl 5 mg tablet,delayed 5 mg PO ONCE #4 tab 10/01/21 11/13/21 Rx release hydrochlorothiazide 25 mg tablet 25 mg PO DAILY 10/01/21 11/13/21 History polyethylene glycol 3350 17 17 g PO ONCE #238 g 10/01/21 11/13/21 Rx gram/dose oral powder Exam Const General: healthy appearing and comfortable Resp Effort & Inspection: normal respiratory effort Auscultation: clear to auscultation bilaterally Cardio Rate: regular rate Rhythm: regular rhythm Heart Sounds: no click, no gallops and no murmurs
--- NOTE | 2021-11-13 06:47 | W.PM.DSUDISC ---
Discharge Plan Disposition Patient Disposition: HOME Condition: Good Discharge Details Reason For Visit: Colonoscopy Attending Provider: Cris Montelongo Primary Care Provider: Sussy Pabon Home Meds and New Rx's Prescriptions: Continued hydrochlorothiazide 25 mg tablet 25 mg PO DAILY RF: 0 metoprolol succinate 50 MG tablet extended release 24 hr 100 mg PO DAILY RF: 0 Metamucil 3.4 gram/5.4 gram Powder 5.4 g PO DAILY RF: 0 Discontinued bisacodyl [Dulcolax (bisacodyl)] 5 mg tablet,delayed release (DR/EC) 5 mg PO ONCE Qty: 4 RF: 0 polyethylene glycol 3350 17 gram/dose powder 17 g PO ONCE Qty: 238 RF: 0 Discharge Instructions Instructions: Colorectal Polyps (DC) Additional Instructions: Findings: 2 small polyps Cecal mass ? Follow up: I will call you with results of the biopsies Please call if you develop: fevers >101.5 Nausea or Vomiting Abdominal pain that is not transient Rectal bleeding that is more then a tbsp A hard abdomen and inability to pass gas DAY SURGERY UNIT POST ENDOSCOPY INSTRUCTIONS Instructions for everyone who is given Anesthesia: For your safety, please do the following for the next 24 Hours: a. Do not drive or operate dangerous equipment b. Do not drink alcohol beverages or use any recreational drugs for the first 24 hours or while taking pain medications. The medications in your body may have a reaction that can be dangerous. c. Do not make any important decisions or sign any important papers 1. Generally there are no restrictions on your activity after a day or so has gone by, but you may feel a bit fatigued for a few days. 2. After you arrive home you may have a light meal and return to a normal diet as you can tolerate it without feeling sick to your stomach. 3. After surgery, you may feel pain or discomfort. This should be only transient, but if it persists please contact your doctor. 4. If there are any questions regarding the findings of your procedure, please feel free to contact your doctor. 6. If you are unable to contact your doctor with a problem, contact the hospital at [phone]. 7. Continue all your regular medications unless directed otherwise. I understand the above instructions and have no questions. Signature of Patient or Responsible Adult Escort Date/Time Name of Responsible Adult Escort Signature of Nurse Date/Time Activity:: Activity as Tolerated Diet:: As Tolerated Discharge Orders Discharge Orders: Discharge Order (Routine); Ordered 11/13/21 Ordered By: Cris Montelongo DS: Diagnosis Discharge Diagnosis (1) Encounter for colonoscopy due to history of adenomatous colonic polyps: Status: Acute (2) History of colon cancer: Status: Chronic
--- NOTE | 2021-11-13 10:02 | W.ANESPRE ---
General Info Date of Service Date Performed: 11/13/21 Height: 6 ft Weight: 119.918 kg Body Mass Index (BMI): 35.8 Surgical Procedure: Operation Date: 11/13/21 11:50 Proposed Procedures Side Surgeon p Colonoscopy w/ possible hemorrhoid banding Cris Montelongo MD Meds Allergies and Home Medications Allergies Allergy/AdvReac Type Severity Reaction Status Date / Time No Known Allergies Allergy Verified 11/13/21 10:29 Home Medication Medication Instructions Recorded metoprolol succinate 100 mg PO DAILY tab-cap 01/08/17 Metamucil 5.4 g PO DAILY 03/29/20 bisacodyl 5 mg tablet,delayed 5 mg PO ONCE #4 tab 10/01/21 release hydrochlorothiazide 25 mg tablet 25 mg PO DAILY 10/01/21 polyethylene glycol 3350 17 17 g PO ONCE #238 g 10/01/21 gram/dose oral powder Current Visit Medications: Current Medications Generic Name Dose Route Start Last Admin Trade Name Freq PRN Reason Stop Dose Admin Hyoscyamine Sulfate 0.125 mg 11/13/21 06:47 Hyoscyamine 0.125 Mg Sl/Oral/Chew SL DIRECTED PRN Ringer's Solution 1,000 mls @ 80 mls/hr 11/13/21 06:00 IV 11/25/21 23:59 INFUSION RUPESH IV Miscellaneous Supplies 1 each 11/13/21 06:00 Iv Access IV 11/25/21 23:59 DIRECTED RUPESH Ondansetron HCl 4 mg 11/13/21 06:47 Ondansetron 4 Mg/2 Ml Vial IVP Q4H PRN PRN Nausea / Vomiting Sodium Chloride 0 ml 11/13/21 06:00 Normal Saline Flush 10 Ml Syr IV 11/25/21 23:59 PRN PRN Sodium Chloride 0 ml 11/13/21 06:00 Normal Saline 10 Ml Vial IJ 11/25/21 23:59 DIRECTED PRN Sterile Water 0 ml 11/13/21 06:00 Water,Injection,Sterile 10 Ml Vial IJ 11/25/21 23:59 DIRECTED PRN PFSH Active Problems Active Problems: Problem Status Onset Code Encounter for colonoscopy due to history of adenomatous colonic polyps Z12.11, Z86.010 Tubular adenoma D36.9 Constipation K59.00 Rectal bleeding K62.5 Colorectal polyps K63.5 History of colon cancer Z85.038 Medical History Medical History Adenocarcinoma, colon 2017. partial colectomy ([place]) and chemotherapy x 6 mos. Colon polyp, hyperplastic 04/02/20 Dr. Ray Montelongo, hyperplastic x2 Hypertension Melanocytic nevus of scalp Surgical History Surgical History Colonoscopy - MAC (02/09/17) Colonoscopy - MAC (03/08/18) laryngoscopy with removal of FB on Tonsil Partial resection of colon (03/10/17) laparoscopic sigmoid colectomy with low anterior ansastamosis S/P colonoscopy (~04/04/19) 2018- Dx with Colon Cancer Tobacco Smoking/Tobacco Use Status: Former Tobacco Use Smokeless tobacco user: chewing tobacco Quit Status: considering quitting Alcohol Alcohol Intake: former Year quit: 2019 Details: 2018 Substance Use Substance use: Never Substance use type: does not use Vital Signs and Lab Results Vital Signs Most Recent Vital Signs in EMR: Temp Pulse Resp BP Pulse Ox 36.3 C L 64 16 170/98 H 99 11/13/21 10:31 11/13/21 10:31 11/13/21 10:31 11/13/21 10:31 11/13/21 10:31 Lab Results Blood Type / Crossmatch: No Data to Display Complete Blood Count: No Data to Display Complete Metabolic Panel: No Data to Display Liver Function Panel: No Data to Display Coagulation Panel: No Data to Display Cardiac Panel: No Data to Display Arterial Blood Gas: No Data to Display Venous Blood Gas: No Data to Display Pancreas Panel: No Data to Display Thyroid Panel: No Data to Display Infectious Disease: Coronavirus (COVID-19)(PCR) Negative (Negative) 11/11/21 08:47 11/11/21 Coronavirus 2019 Source Nasal/Nares 11/11/21 08:47 11/11/21 Blood Cultures: No Data to Display Toxicology Panel: No Data to Display Anesthesia Assessment and Plan Anesthesia History Personal History: No History of Anesthesia Complications Family History: No Family History of Anesthesia Complications Exercise Tolerance Exercise Tolerance: Metabolic Equivalents>4 Pertinent Negatives Pertinent Negatives: No Symptoms of GERD, No Major Cardiovascular Symptoms or Complaints, No Major Pulmonary Symptoms or Complaints and No History of CVA/TIA Cardiac & Pulmonary Exam Cardiac Exam: Normal S1/S2 Heart Sounds Pulmonary Exam: Clear Bilateral Breath Sounds Cardiac and Pulmonary Comment:: Snores Implantable Cardiac Device Does patient have a Pacemaker or an ICD?: No Airway Exam Known Difficult Airway: No Mallampati Class: 2 Mouth Opening: Normal (> 3cm) Thyromental Distance: Greater than 3 cm Facial Hair: Full Minor Neck Range of Motion: Full ROM Neck Circumference: Normal Teeth Condition: Normal Dentition ASA Classification ASA Score: ASA 2 Emergency Case?: No NPO Status NPO Status: NPO Clears >2 hours, Solids >8 hours Anesthesia Plan Resuscitation Status: Full Code Anesthesia Technique: General Anesthesia Airway Planned: Natural Airway Monitors Used: Standard Monitors
[2021-11-13 10:31] VITALS: BP 170/98; PULSE 64; RESP 16; TEMP 36.3; O2SAT 99
[2021-11-13 10:55] VITALS: BMI 35.8
[2021-11-13] MEDS: Lactated Ringers 1,000 ML 80 ML IV (10:55)
--- NOTE | 2021-11-13 11:10 | BOWEL_PTH ---
PATIENT: Tony Hamilton V LOC: [facility] U#:[id number] AGE/SX: 61/M ROOM: RE11/13/[address]: Cris Montelongo MD : 1960 BED: DIS: 11/13/2021 SPEC #: [id number] RECD: 11/14/21 12:02 STATUS: BOUBACAR REJalyn #: [id number] MAXIMUS: 11/13/21 11:[address]: Cris Montelongo DEPT: Surgical Specimen RECD BY: Yenny Wade ENTERED: 11/14/21 12:03 SP TYPE: Bowel OTHR DR: Bernard Pabon Tissues: 1 - BIOPSY BOWEL 2 - BIOPSY BOWEL 3 - BIOPSY BOWEL Procedures: GROSS AND MICRO LEVEL 4 Comments: [id number]
[2021-11-13 11:37] VITALS: BP 122/89; PULSE 63; RESP 16; TEMP 36.7; O2SAT 94
--- NOTE | 2021-11-13 11:46 | W.ANESPOSTOP ---
Postoperative Evaluation Date, Time and Location Date Performed: 11/13/21 Time Performed: 11:37 Patient Location: Day Surgery Unit Vital Signs Most Recent Imported Vital Signs: Most Recent Vital Signs Temp Pulse Resp BP Pulse Ox 36.7 C 63 16 122/89 94 11/13/21 11:37 11/13/21 11:37 11/13/21 11:37 11/13/21 11:37 11/13/21 11:37 Pain Score Most Recent Pain Score: Most Recent Pain Score Pain Level 0 11/13/21 10:31 Assessment Mental Status: Awake (Alert & Oriented to Patient Baseline) Airway and Respiratory Function: Patent airway with normal (patient baseline) respiratory exam Cardiovascular Function: Hemodynamically Stable Hydration Status: Adequately Hydrated Nausea & Vomiting: No Nausea or Vomiting Pain: Pt. Denies Any Pain Peripheral Nerve Block: Patient did not receive a nerve block
[2021-11-13 12:08] VITALS: BP 137/84; PULSE 65; RESP 16; TEMP 36.8; O2SAT 98
[2021-11-13 21:56] LABS: CEA 0.5 ng/mL (See Note)
== END 2021-11-13 12:45 | disposition home or self-care (01) ==
LOC: SUR 10:19
PROVIDERS: PCP Nurse Practitioner Family; Visit Provider Surgery
PROC: 0DJD8ZZ Inspection of Lower Intestinal Tract, Via Natural or Artificial Opening Endoscopic (ICD-10-PCS; CPT 45378; principal; 2021-11-13 11:45)
DX: Z12.11 Encounter for screening for malignant neoplasm of colon (principal); D12.2 Benign neoplasm of ascending colon; K62.7 Radiation proctitis; K52.89 Other specified noninfective gastroenteritis and colitis; Z85.038 Personal history of other malignant neoplasm of large intestine; Z86.010 Personal history of colon polyps; Z98.0 Intestinal bypass and anastomosis status
CPT/HCPCS: 45380; 36415; 88305; 82378; J2001; J2704

== ENCOUNTER 2024-04-08 07:26 | Day surgery (SDC) | payer OTHER, SELFPAY ==
--- NOTE | 2024-04-07 19:58 | W.PM.DSUDISC ---
Date of service: 04/08/24 Time of Service: 09:38 Discharge Plan Disposition Patient Disposition: Home Condition: Good Discharge Details Reason For Visit: screening colonoscopy Attending Provider: Donald Hall Primary Care Provider: Sussy Pabon Home Meds and New Rx's Prescriptions: Continued hydrochlorothiazide 25 mg tablet 25 mg PO DAILY metoprolol succinate 50 MG tablet extended release 24 hr 100 mg PO DAILY mesalamine 1.2 gram tablet,delayed release (DR/EC) 2.4 g PO DAILY 90 Days Qty: 180 3RF Discontinued bisacodyl [Dulcolax (bisacodyl)] 5 mg tablet,delayed release (DR/EC) 5 mg PO ONCE Qty: 4 0RF Rx Instructions: Take per colonoscopy instructions provided by ordering providers office polyethylene glycol 3350 17 gram/dose powder 17 g PO ONCE Qty: 238 0RF Rx Instructions: Take per colonoscopy instructions provided by ordering providers office Discharge Instructions Additional Instructions: Tony we are able to complete your colonoscopy today without any difficulty. Everything went very smoothly. There is a small amount of inflammation around the bottom portion of your rectum that is benign appearing. Your anastomosis, or connection, looks healthy, and I do not see any signs of abnormalities here. There is no active inflammation in this area. The only problem I see is at the base of your appendix. There is an area here that is quite inflamed and irritated. The tissue was friable (meaning it bleeds very easily). I do have some concerns about this area, however, it is seen on your previous colonoscopies, and all the previous biopsies show active and chronic inflammation. I biopsied it again today. Will send these tissues off for testing. As soon as I have those results, let you know. 1. If tolerated, consume a soft, low fiber diet for 1-2 days. 2[address] Do not drive, drink alcohol, operate machinery, make critical decisions, or do activities that require coordination or balance for 24 hours. 3. Because air was put into your colon during the procedure, expelling air from your rectum (passing gas or farting) is normal. 4. You may not have a bowel movement for 1-3 days because of the colonoscopy prep. This is normal. 5. Go directly to the emergency room if you notice any of the following: Develop chills (warm to touch), or if you have a thermometer and your temperature is above 101 Difficulty breathing or difficultly swallowing Persistent vomiting Severe abdominal pain, other than gas cramps Severe chest pain Black, tarry stools Any bleeding ? exceeding one tablespoon 6. Call your physician if the site where your intravenous was started becomes red, swollen, painful, and warm to touch. 7. Your physician has reviewed your pre-procedure medications. Please continue to take those medications as previously ordered. You will be given specific information/education regarding any changes to your medications before leaving. Activity:: Activity as Tolerated Diet:: As Tolerated Discharge Orders Discharge Orders: Discharge Order (Routine); Ordered 04/07/24 Ordered By: Donald Hall DS: Diagnosis Discharge Diagnosis (1) Encounter for screening colonoscopy: Status: Acute Asessment and Plan: Follow-up on biopsy results
--- NOTE | 2024-04-07 19:59 | COLE_ITS ---
Date of service: 04/08/24 Time of Service: 09:41 Colonoscopy Report Date of procedure: 04/08/24 Pre-op diagnosis general: screening colonoscopy Post-op diagnosis procedure note: other (Proctitis, cecal mass) Procedure: colonoscopy with biopsies Surgeon: Donald Hall Anesthesia Type: General:No Airway Estimated blood loss (mL): 10 Pathology: other (Biopsies of cecal mass) Complications: None Disposition: same day Indications: Tony is a 63 year old man with inflammotroy bowel disease and a history of colon cancer. He needs his next screening colonoscopy Prep: Miralax/Dulcolax Procedure Start Time: :14 Procedure End Time: 09:31 Retraction Time: 10 Findings: Mild distal proctitis, healthy appearing colocolonic anastomosis at 20 cm from the anus, polypoid periappendiceal cecal mass Procedure Description: After the induction of anesthesia, and with the patient in left lateral decubitus position, I began by performing an external anorectal exam.? Perineum and skin were normal, as was the anal verge.? There was no evidence of external hemorrhoids.? Next, I performed a digital rectal exam.? I did not appreciate any abnormal findings.? Next, I advanced a colonoscope into the rectal vault.? I performed retroflexion.? There are some mild inflammation few centimeters above the anal canal within the distal rectal vault. Narrowband imaging was used to assist with analysis.? Using insufflation, I then advanced the colonoscope beyond the rectal folds and into the sigmoid colon before advancing towards the cecum.? The quality of the prep was excellent.? The scope was noted to be in the cecum by identification of the ileocecal valve. The appendiceal orifice is obliterated by friable polyposis. Narrowband imaging is used here. Some clinical features are concerning for malignancy, however, this area is documented on multiple previous colonoscopies as well. It is not amenable to colonoscopic resection. I did perform multiple cold forceps biopsies for business representative sampling of the area. Bleeding was minimal. I then began withdrawing the colonoscope using repeated irrigation as necessary for full evaluation of the colonic mucosa. ?Once the scope was withdrawn to the level of the rectum, great care was taken to examine portions of the rectal folds.? Finally, the scope was withdrawn and the patient was brought to the same-day surgery recovery unit as the anesthetic wore off. ?The findings and instructions were shared with the patient prior to discharge. [place] Bowel Prep [place] Bowel Prep Right Colon: 3 Left Colon: 3 Transverse Colon: 3 Total Score: 9
[2024-04-08 07:54] VITALS: BP 138/92; PULSE 61; RESP 16; TEMP 36.6; O2SAT 95
[2024-04-08] MEDS: Lactated Ringers 1,000 ML 80 ML IV (07:57)
--- NOTE | 2024-04-08 08:41 | W.ANESPRE ---
General Info Date of Service Date Performed: 04/08/24 Height: 6 ft Weight: 119.4 kg Body Mass Index (BMI): 35.6 Surgical Procedure: Operation Date: 04/08/24 08:50 Proposed Procedure Side Surgeon p Colonoscopy Donald Hall MD Meds Allergies and Home Medications Allergies Allergy/AdvReac Type Severity Reaction Status Date / Time No Known Allergies Allergy Verified 04/08/24 07:36 Home Medication Medication Instructions Recorded metoprolol succinate 50 mg 100 mg PO DAILY 01/08/17 tablet,extended release 24 hr hydrochlorothiazide 25 mg tablet 25 mg PO DAILY 10/01/21 mesalamine 1.2 gram tablet,delayed 2.4 g (2 x 1.2 gram) PO DAILY 3 07/21/23 release months #180 tabs Current Visit Medications: Current Medications Generic Name Dose Route Start Last Admin Trade Name Freq PRN Reason Stop Dose Admin Hyoscyamine Sulfate 0.125 mg 04/07/24 20:02 Hyoscyamine 0.125 Mg Sl/Oral/Chew SL 05/07/24 20:01 DIRECTED PRN Ringer's Solution 1,000 mls @ 80 mls/hr 04/08/24 06:00 04/08/24 07:57 IV 05/07/24 23:59 80 mls/hr INFUSION RUPESH Administration IV Miscellaneous Supplies 1 each 04/08/24 06:00 Iv Access IV 05/07/24 23:59 DIRECTED RUPESH Ondansetron HCl 4 mg 04/07/24 20:02 Ondansetron 4 Mg/2 Ml Vial IVP 05/07/24 20:01 Q4H PRN PRN Nausea / Vomiting Sodium Chloride 0 ml 04/08/24 06:00 Normal Saline Flush 10 Ml Syr IV 05/07/24 23:59 PRN PRN Sodium Chloride 0 ml 04/08/24 06:00 Normal Saline 10 Ml Vial IJ 05/07/24 23:59 DIRECTED PRN Sterile Water 0 ml 04/08/24 06:00 Water,Injection,Sterile 10 Ml Vial IJ 05/07/24 23:59 DIRECTED PRN PFSH Active Problems Active Problems: Problem Status Onset Code Encounter for screening colonoscopy Z12.11 Inflammatory bowel disease K52.9 Constipation K59.00 Rectal bleeding K62.5 Colorectal polyps K63.5 History of colon cancer Z85.038 Medical History Medical History Adenocarcinoma, colon 2017. partial colectomy ([place]) and chemotherapy x 6 mos. Colon polyp, hyperplastic 10/2021: [facility]. hyperplastic x1. Tubular adenoma x1. 04/02/20 Dr. Ray Montelongo, hyperplastic x2 Encounter for colonoscopy due to history of adenomatous colonic polyps Hypertension Melanocytic nevus of scalp Tubular adenoma 04/02/20 Dr. Ray Montelongo Surgical History Surgical History Colonoscopy - MAC (02/09/17) Colonoscopy - MAC (03/08/18) laryngoscopy with removal of FB on Tonsil Partial resection of colon (03/10/17) laparoscopic sigmoid colectomy with low anterior ansastamosis S/P colonoscopy (~04/04/19) 2018- Dx with Colon Cancer Tobacco Smoking/Tobacco Use Status: Current-Occasional Tobacco Type: smokeless tobacco Smokeless tobacco user: chewing tobacco Alcohol Alcohol Intake: current Alcohol intake frequency: a few times a week Alcohol type: beer Details: 2018 Substance Use Substance use: Never Substance use type: does not use Details: chewing tobacco Vital Signs and Lab Results Vital Signs Most Recent Vital Signs in EMR: Most Recent Vital Signs Temp Pulse Resp BP Pulse Ox 36.6 C 61 16 138/92 H 95 04/08/24 07:54 04/08/24 07:54 04/08/24 07:54 04/08/24 07:54 04/08/24 07:54 Lab Results Blood Type / Crossmatch: No Data to Display Complete Blood Count: No Data to Display Complete Metabolic Panel: No Data to Display Liver Function Panel: No Data to Display Coagulation Panel: No Data to Display Cardiac Panel: No Data to Display Arterial Blood Gas: No Data to Display Venous Blood Gas: No Data to Display Pancreas Panel: No Data to Display Thyroid Panel: No Data to Display Infectious Disease: No Data to Display Blood Cultures: No Data to Display Toxicology Panel: No Data to Display Anesthesia Assessment and Plan Anesthesia History Personal History: No History of Anesthesia Complications Family History: No Family History of Anesthesia Complications Exercise Tolerance Exercise Tolerance: Metabolic Equivalents>4 Pertinent Negatives Pertinent Negatives: No Major Cardiovascular Symptoms or Complaints and No Major Pulmonary Symptoms or Complaints Cardiac & Pulmonary Exam Cardiac Exam: Normal S1/S2 Heart Sounds Pulmonary Exam: Clear Bilateral Breath Sounds Implantable Cardiac Device Does patient have a Pacemaker or an ICD?: No Airway Exam Known Difficult Airway: No Mallampati Class: 2 Mouth Opening: Normal (> 3cm) Thyromental Distance: Greater than 3 cm Neck Range of Motion: Full ROM Neck Circumference: Thick Teeth Condition: Normal Dentition ASA Classification ASA Score: ASA 3 Emergency Case?: No NPO Status NPO Status: NPO Clears >2 hours, Solids >8 hours Anesthesia Plan Resuscitation Status: Full Code Anesthesia Technique: General Anesthesia Airway Planned: Natural Airway Monitors Used: Standard Monitors
[2024-04-08 08:43] VITALS: BMI 35.6
--- NOTE | 2024-04-08 09:21 | BOWEL_PTH ---
PATIENT: Tony Hamilton V LOC: [facility] U#:[id number] AGE/SX: 63/M ROOM: RE04/08/[address]: Donald Hall MD : 1960 BED: DIS: 04/08/2024 SPEC #: [id number] RECD: 04/08/24 13:07 STATUS: BOUBACAR RE #: [id number] MAXIMUS: 04/08/24 09:[address]: Donald Hall DEPT: Surgical Specimen RECD BY: Yenny Wade ENTERED: 04/08/24 13:08 SP TYPE: Bowel OTHR DR: Bernard Pabon Tissues: 1 - BIOPSY BOWEL Procedures: GROSS AND MICRO LEVEL 4 IMMUNOPEROXIDASE STAIN Comments: [id number]
[2024-04-08 09:38] VITALS: BP 114/81; PULSE 62; RESP 18; TEMP 36.5; O2SAT 95
[2024-04-08 10:07] VITALS: BP 130/77; PULSE 57; RESP 18; TEMP 36.7; O2SAT 95
--- NOTE | 2024-04-08 10:41 | W.ANESPOSTOP ---
Postoperative Evaluation Date, Time and Location Date Performed: 04/08/24 Time Performed: 09:45 Patient Location: Day Surgery Unit Vital Signs Most Recent Imported Vital Signs: Most Recent Vital Signs Temp Pulse Resp BP Pulse Ox 36.7 C 57 L 18 130/77 95 04/08/24 10:07 04/08/24 10:07 04/08/24 10:07 04/08/24 10:07 04/08/24 10:07 Pain Score Most Recent Pain Score: Most Recent Pain Score Pain Level 0 04/08/24 10:07 Assessment Mental Status: Awake (Alert & Oriented to Patient Baseline) Airway and Respiratory Function: Patent airway with normal (patient baseline) respiratory exam Cardiovascular Function: Hemodynamically Stable Hydration Status: Adequately Hydrated Nausea & Vomiting: No Nausea or Vomiting Pain: Pt. Denies Any Pain Peripheral Nerve Block: Patient did not receive a nerve block
== END 2024-04-08 10:21 | disposition home or self-care (01) ==
LOC: SUR 07:27
PROVIDERS: PCP Nurse Practitioner Family; Visit Provider Surgery
PROC: 0DJD8ZZ Inspection of Lower Intestinal Tract, Via Natural or Artificial Opening Endoscopic (ICD-10-PCS; CPT 45378; principal; 2024-04-08 08:45)
DX: Z12.11 Encounter for screening for malignant neoplasm of colon (principal); K51.40 Inflammatory polyps of colon without complications; K51.20 Ulcerative (chronic) proctitis without complications
CPT/HCPCS: 45380; 88305; 88361; J2001; J2704

== ENCOUNTER 2024-07-07 20:14 | Outpatient (REF) | payer OTHER, SELFPAY ==
[2024-07-07 20:30] LABS: ALT 34 U/L (16-63); AST 22 U/L (15-37); Albumin 3.7 g/dL (3.4-5.0); Alkaline Phosphatase 50 U/L (46-116); Anion Gap 6.4 mmol/L (3-11); BUN 21 mg/dL (7-18); Bilirubin, Total 0.85 mg/dL (0.2-1.0); CO2 30.6 mmol/L (21.0-32.0); CREATININE 1.1 mg/dL (0.70-1.30); Calcium 8.9 mg/dL (8.5-10.1); Calculated LDL 123 mg/dL (<100); Chloride 101 mmol/L (98-107); Cholesterol 196 mg/dL (<200); Estimated GFR 74.04 (mL/min/1.73m2); Glucose 119 mg/dL (74-106); HDL Cholesterol 42 mg/dL (40-60); Potassium 3.5 mmol/L (3.5-5.1); Sodium 138 mmol/L (136-145); Total Protein 7.3 g/dL (6.4-8.2); Triglyceride 158 mg/dL (<150)
[2024-07-07 20:50] LABS: Hemoglobin A1C 5.3 % (<5.7)
== END 2024-07-07 20:15 | disposition home or self-care (01) ==
LOC: NCHCN 20:14
PROVIDERS: PCP Nurse Practitioner Family; Visit Provider Nurse Practitioner Family
DX: E78.5 Hyperlipidemia, unspecified (principal); I10 Essential (primary) hypertension; E66.9 Obesity, unspecified
CPT/HCPCS: 80053; 80061; 83036